=== PATIENT | male | born 1930 | race Two or more races ===

== ENCOUNTER 2019-11-30 13:22 | Inpatient (IN) | payer OTHER ==
--- NOTE | 2019-11-30 13:38 | PDOC ---
History of Present Illness - General Chief Complaint: Shortness of Breath Stated Complaint: DIFFICULTY WALKING Time Seen by Provider: 11/30/19 13:33 History Source: Patient Exam Limitations: No Limitations - History of Present Illness Initial Comments: Hx limited bc patient speaks english only. Never been here in the past Per EMS: Trouble walking, fell in bath rub yesterday, unwitnessed. Satting at 93 on RA. now 98 on 4lnc. On blood thinners. Had a stent. Hx of heart disease. Fever notiiced in ER. Speaks english only. HPI: Latvian speaking nurse Austen helped with translation. Patient states he feels weak. keeps speaking about a tree he ate from where he thinks the berries are no good. Endorses 1 episode of nausea and vomiting yesterday. Been feeling weak for 2 days. Patient not making much sense in ER and not able to provide a good historical narrative. Per son: Sudhir [phone]. Last night midnight unwitnessed fall in bathroom. Was on the floor for half an hour. Started yelling for brother. Brother helped him get up. Checked sugar was 157 last night. Has not been feeling well for 3 days now but he doesn't know why. Generalized weakness. Tried to goto Dr. Ra rodney's office today but patient couldn't even walk half a block and was falling down on son. Couldn't breathe and couldn't walk. Is very weak. Usually he is able to walk nice and slowly with a cane. But today and yesterday he is very weak and son doesn't know whats going on. - Hx of kidney stones. Chronic hip/shoulder pain. - Father stayed home for the past 3 months and has not gone anywhere. No coronavirus in household. PMH: CAD, 2 stents, NIDDM PCP: Dr. Carbajal Chopped Strand Operator: Dr. Wright (Same office as andrew) PSH: Stents Allergies: NKA, NKDA Social Hx: Denies smoking, drinking, or other substance abuse. Patient lives at home with son. Brother is primary auto mechanics instructor. 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 Past History - Medical History Allergies/Adverse Reactions: Allergies Allergy/AdvReac Type Severity Reaction Status Date / Time No Allergy Information Allergy Verified 06/25/20 13:29 Available COPD: No - Psycho-Social/Smoking History Smoking History: Never smoked Review of Systems - Review of Systems Able to Perform ROS?: No (Confused) *Physical Exam - Vital Signs Last Vital Signs Temp Pulse Resp BP Pulse Ox 102.6 F H 112 H 20 132/78 95 11/30/19 13:26 11/30/19 13:26 11/30/19 13:26 11/30/19 13:26 11/30/19 13:26 - Physical Exam GENERAL: Resting on bed comfortably. in No acute distress. Well-appearing, well- nourished. HEENT: Normocephalic, atraumatic. PERRL, EOM intact. CARDIOVASCULAR: Normal S1, S2. Regular rate and rhythm. 1 lower extremity + edema. PULMONARY: No evidence of respiratory distress. Lungs clear to auscultation bilaterally. No wheezing, rales or rhonchi. ABDOMEN: Soft, non-distended, non-tender. EXTREMITIES: Normal ROM in all four extremities. No gross deformities. 1+ edema bilaterally in lower legs. SKIN: Warm, dry. No rash NEUROLOGICAL: No focal neurological deficits. ED Treatment Course - LABORATORY CBC & Chemistry Diagram: 11/30/19 14:37 11/30/19 14:37 - RADIOLOGY Radiograph Interpretation: Head/cervical CT: Rule out bleed CT scan of the brain. A noncontrast CT scan of the brain was performed. No prior is available for comparison There is generalized volume loss with moderate ventricular dilatation and periventricular chronic microvascular ischemic changes are present No mass lesion, gross acute infarct or intracranial hemorrhage are identified. There is minimal free fluid layering in the right x-ray antrum. The rest of the visualized paranasal sinuses are well aerated with mild deviation of the nasal septum towards the right. Right mastoid air cells are well aerated. Left mastoid air cells are partially opacified. Both orbits appear unremarkable. Impression: Generalized volume loss without gross CT evidence of acute intracranial pathology. The calvarium is intact. CT scan of the cervical spine without intravenous contrast Coronal and sagittal reconstruction images were obtained. No gross fracture, subluxation or prevertebral soft tissue swelling is seen. No jumped facets are identified. Moderate to marked degenerative disc disease at C4-C5 and C5-C6 level with mild disc osteophyte complex and bilateral uncovertebral hypertrophy mainly at C5-C6 level moderately narrowing the foramina. Mild degenerative disc disease at C6-C7 level Visualized portion of the airway appears unremarkable. No gross enlarged lymph nodes are identified. Lung windows at the thoracic inlet appear unremarkable. Moderate size calcified plaques at the common carotid bifurcation, bilaterally IMPRESSION: See discussion above The alignment is satisfactory. No gross fracture or subluxation is seen. CTAP: Evaluate for abdominal pain CT scan of the abdomen and pelvis following oral and intravenous contrast. Coronal and sagittal reformatted images were obtained 90 cc of Omnipaque 350 was intravenously injected Comparison: None available There is interstitial thickening in the included lower lung with mild bibasal atelectatic changes and pleural thickening without gross evidence of pleural effusion. The heart is within normal limits in size. Calcification of the coronary arteries are present. Evaluation of the liver, spleen and pancreas appear unremarkable. Status post cholecystectomy surgical metallic clips are present. Both adrenal glands appear unremarkable. There are multiple bilateral renal cysts with the largest left renal cyst measuring 4.8 cm and largest right renal cyst measuring 5.7 cm. Normal size common bile duct. Nondistended stomach limiting evaluation of its wall There is no evidence of small bowel obstruction. Collapsed terminal ileum limiting its evaluation. The appendix is not grossly identified. No secondary signs of acute appendicitis. Normal amount of stool in the colon. Redundant sigmoid colon without thickening. Partially distended bladder without wall thickening. Normal size prostate gland with small calcifications which are nonspecific. Perirectal and pericecal fat are clear. Small fat-containing right and left inguinal hernia. Normal size and enhancement of the abdominal aorta with calcified atheromatous plaques down through its bifurcation. No free air or free fluid in the abdomen and pelvis. Visualized osseous structures appear intact. L4-L5 mild degenerative disc disease with vacuum phenomena and moderate bilateral facet hypertrophy. There is posterior fusion of L4 and L5 posterior spinous process. L5-S1 mild degenerative vacuum phenomena Impression: Mild bibasal atelectatic changes with pleural thickening Status post cholecystectomy. Bilateral renal cysts, as described above. No gross CT evidence of an acute process is identified in the abdomen pelvis. Medical Decision Making - Medical Decision Making 89 yo M w a hx of CAD, 2 stents, NIDDM presents with weakness, a fever, possible nausea/vomiting, poor historian, clear sounding breath soundsm inability to ambulate when he usually can. Vital Signs Period Temp Pulse Resp BP Sys/Meléndez Pulse Ox Last 24 Hr 102.6 F 112 20 132/78 95 DDx IBNLT: Sepsis, Covid, PNA, UTI, Pylo, electrolyte/metabolic disturbance, gastroenteritis, cellultiis, brain bleed, cervical fx, intra-abdominal infection. Plan: Labs, Urine, EKG, CXR, Head/neck/abdomen CT, likely admission to hospital. Labs: Unremarkable Head/cervical CT: No acute pathology. Significant brain atrophy/ventricular dilatation CTAP: Mild bibasal atelectatic changes with pleural thickening Urine: Clean without signs of infection Dispo: Admission for generalized weakness, fever of unkown origin Discharge - Discharge Information Problems reviewed: Yes Clinical Impression/Diagnosis: Confusion, SIRS (systemic inflammatory response syndrome), Weakness Fatigue Qualifiers: Fatigue type: unspecified Qualified Code(s): R53.83 - Other fatigue Condition: Stable - Admission Yes - Follow up/Referral Referrals: Bri Carbajal MD [Primary Care Provider] - - Patient Discharge Instructions - Post Discharge Activity
[2019-11-30] MEDS ORDERED: SODIUM CHLORIDE 2,858 ML IV ONE (13:39)
[2019-11-30] MEDS ORDERED: LACTATED RINGERS SOLUTION 1000 ML INFUS.BAG IV ONE (13:45)
[2019-11-30] MEDS ORDERED: ACETAMINOPHEN 1000 MG/100 ML VIAL (NON FORMULARY) IVPB ONE (13:47)
[2019-11-30] MEDS ORDERED: ACETAMINOPHEN INJECTION 100 ML IVPB ONE (14:52)
[2019-11-30 15:07] LABS: BASO % 0.5 % (0-2.0); EOS % 0.1 % (0-4.5); HEMATOCRIT 37.8 % (35.4-49); HEMOGLOBIN 11.7 GM/dL (11.7-16.9); LYMPH % 14.2 % (8-40); MEAN CELL VOLUME 64.4 fl (80-96); MEAN PLT VOLUME 8.3 fl (7.5-11.1); MONO % 18.6 % (3.8-10.2); NEUT % 66.6 % (42.8-82.8); PLATELET COUNT 124 K/MM3 (134-434); RBC 5.87 M/mm3 (4.00-5.60); RDW 15.2 % (11.9-15.9); WHITE BLOOD COUNT 3.5 K/mm3 (4.0-10.0)
[2019-11-30 15:16] LABS: MCH 19.9 pg (25.7-33.7)
[2019-11-30 15:19] LABS: INR 1.28 (0.83-1.09); PROTHROMBIN TIME (PATIENT) 15.2 SEC (9.7-13.0)
[2019-11-30 15:21] LABS: ACTIVATED PTT 32.7 SECONDS (25.2-36.5)
[2019-11-30 15:30] LABS: BILIRUBIN,DIRECT 0.2 mg/dL (0.0-0.2)
[2019-11-30 15:32] LABS: ALBUMIN 3.4 g/dl (3.4-5.0); ALK PHOS 62 U/L (45-117); ANION GAP 8 MMOL/L (8-16); BILIRUBIN,TOTAL 0.6 mg/dL (0.2-1); BLOOD UREA NITROGEN 18.1 mg/dL (7-18); CALCIUM 8.5 mg/dL (8.5-10.1); CHLORIDE 104 mmol/L (98-107); CO2 27 mmol/L (21-32); CREATININE 1.3 mg/dL (0.55-1.3); GLUCOSE,RANDOM 114 mg/dL (74-106); SGOT/AST 30 U/L (15-37); SGPT/ALT 27 U/L (13-61); SODIUM 139 mmol/L (136-145); TOT PROT 6.8 g/dl (6.4-8.2)
[2019-11-30 16:00] LABS: ANISOCYTOSIS 1+; MACROCYTOSIS 0; OVALOCYTE 2+; PLATELET ESTIMATE DECREASED
--- NOTE | 2019-11-30 16:23 | PDOC ---
Documentation entered by Ladan Gill SCRIBE, acting as scribe for Lana Murry MD. Lana Murry MD: This documentation has been prepared by the scribe, Ladan Lee SCRIBE, under my direction and personally reviewed by me in its entirety. I confirm that the documentation accurately reflects all work, treatment, procedures, and medical decision making performed by me. Attending Attestation - Resident Resident Name: Darrian Haines - ED Attending Attestation I have performed the following: I have examined & evaluated the patient, The case was reviewed & discussed with the resident, I agree w/resident's findings & plan, Exceptions are as noted - HPI HPI: 11/30/19 13:37 The patient is an 89 year old male (Telugu speaking) with a significant PMH of CAD (2 stents), NIDDM, kidney stones and chronic hip/shoulder pain who presents to the ED BIBA for weakness. Per EMS the patient was having trouble ambulating and fell in bathtub yesterday, which was not witnessed. He notes he was on the floor for 30 minutes when his brother came to him and helped him up. EMS notes that the patient was satting 93% on RA, and 98% on 4L NC. Per brother, the patient had a blood sugar of 157 last night and that the patient has not been feeling well for 3 days, but he is not sure why, he just has been having generalized weakness. Son notes that the patient tried to see his PCP ut could not walk even half a block due to SOB and weakness. Son notes that patient is able to walk at baseline. Of note, the patient is on blood thinners. Denies COVID exposure. Denie fever, chills, nausea, vomiting, change in bowel habits. PCP: andrew - Physicial Exam PE: 11/30/19 16:18 General: non-toxic appearing HEENT: NCAT Chest: CTAB, good air entry, speaking in full sentences CVS: + s1 s2 Abdomen: soft, nt, nd , no rebound, no guarding Extremities: 1+ LE edema, warm and well perfused - Medical Decision Making 11/30/19 16:19 89 yo M p/w generalized weakness and fever in the ED, reports of SOB at home but patient currently denies, possible viral syndrome such as COVID vs. PNA vs. UTI. No abd tenderness or complaints of pain so lower suspicion for abdominal pathology. Plan: -labs -urine -COVID testing -cxr -IVF -CT a/p -tylenol -abx -admit This clinical encounter is taking place during a federal and state health care emergency attributable to the novel [place] Virus pandemic. The [place] of the Department of Health and Human Services has declared, pursuant to the Public Health Service Act 319F-3 (42 U.S.C. 247d-6d), that a covered persons activities related to medical countermeasures against COVID-19 will be immune from liability under Federal and State law. Discharge - Discharge Information Problems reviewed: Yes Clinical Impression/Diagnosis: Confusion, SIRS (systemic inflammatory response syndrome), Weakness Fatigue Qualifiers: Fatigue type: unspecified Qualified Code(s): R53.83 - Other fatigue Condition: Stable - Follow up/Referral Referrals: Bri Carbajal MD [Primary Care Provider] - - Patient Discharge Instructions - Post Discharge Activity
[2019-11-30] MEDS ORDERED: CEFTRIAXONE 1,000 MG in DEXTROSE 5%-WATER - 50 ML IVPB ONE (16:51)
[2019-11-30 17:26] LABS: EPI CELLS 12 /uL (0-25.1); HYALINE CASTS 2 /uL (0-3.1); PH,URINE 5.5 (5.0-8.0); URINE APPEARANCE CLEAR; URINE BACTERIA 5 /uL (0-1359); URINE BILIRUBIN NEGATIVE (NEGATIVE); URINE COLOR YELLOW; URINE GLUCOSE (UA) NEGATIVE (NEGATIVE); URINE KETONE NEGATIVE (NEGATIVE); URINE LEUK ESTERASE NEGATIVE (NEGATIVE); URINE NITRITE NEGATIVE (NEGATIVE); URINE PROTEIN 1+ (NEGATIVE); URINE UROBILINOGEN 0.2 mg/dL (0.2-1.0); URINE WBC 6 /uL (0-25.8)
[2019-11-30] MEDS ORDERED: CEFTRIAXONE 1 GM/50 ML BAG ONE (17:28)
[2019-11-30] MEDS ORDERED: AZITHROMYCIN 250 MG TABLET PO ONE (17:31)
[2019-11-30] MEDS ORDERED: AZITHROMYCIN 250 MG TABLET ONE (17:34)
[2019-11-30 17:51] LABS: URINE RBC 54.4 /uL (0-23.9)
[2019-11-30] MEDS ORDERED: LACTATED RINGERS SOLUTION 1,000 ML/1,000 ML INFUS.BAG IV SCH (18:30)
[2019-11-30] MEDS ORDERED: SODIUM CHLORIDE 1,000 ML IV SCH (21:15)
--- NOTE | 2019-11-30 21:15 | HP ---
CHIEF COMPLAINT: PCP: HISTORY OF PRESENT ILLNESS: Corey Florian is a 89 year old male (Macedonian speaking) with a significant PMH of CAD (2 stents), DM- kidney stones and chronic hip/shoulder pain who presented to the ED BIBA for weakness. Per EMS the patient was having trouble ambulating and fell in bathtub yesterday, which was not witnessed. He notes he was on the floor for 30 minutes when his brother came to him and helped him up. EMS notes that the patient was satting 93% on RA, and 98% on 4L NC. Per brother, the patient had a blood sugar of 157 last night and that the patient has not been feeling well for 3 days, but he is not sure why, he just has been having generalized weakness. Call and spoke to son, Sudhir,[phone] reports pt has not been around any COVID exposure, has been indoors. only went to see PCP last week. son was able to provide me with list of medication pt takes at home. pt last A1c 6.8, has not been "officially diagnosed with DM." monitoring BS and diet at home as per son. Denies COVID exposure. Denies fever, chills, nausea, vomiting, change in bowel habits. ER course was notable for: (1)Temp 102.6 (2)tachycardia 112 (3) Recent Travel: PAST MEDICAL HISTORY: CAD s/p stent x2 chronic shoulder pain DM PAST SURGICAL HISTORY: Social History: Smoking:denies Alcohol:denies Drugs: denies Allergies No Allergy Information Available Allergy (Verified 11/30/19 13:29) HOME MEDICATIONS: ASA 81 mg PO daily Metoprolol 25 mg Q12hrs Losaartan 25 mg daily Plavix 75 mg daily REVIEW OF SYSTEMS CONSTITUTIONAL: generalized weakness, Absent: fever, chills, diaphoresis, malaise, loss of appetite, weight change HEENT: Absent: rhinorrhea, nasal congestion, throat pain, throat swelling, difficulty swallowing, mouth swelling, ear pain, eye pain, visual changes CARDIOVASCULAR: Absent: chest pain, syncope, palpitations, irregular heart rate, lightheadedness, peripheral edema RESPIRATORY: Absent: cough, shortness of breath, dyspnea with exertion, orthopnea, wheezing, stridor, hemoptysis GASTROINTESTINAL: Absent: abdominal pain, abdominal distension, nausea, vomiting, diarrhea, constipation, melena, hematochezia GENITOURINARY: Absent: dysuria, frequency, urgency, hesitancy, hematuria, flank pain, genital pain MUSCULOSKELETAL: Absent: myalgia, arthralgia, joint swelling, back pain, neck pain SKIN: Absent: rash, itching, pallor HEMATOLOGIC/IMMUNOLOGIC: Absent: easy bleeding, easy bruising, lymphadenopathy, frequent infections ENDOCRINE: Absent: unexplained weight gain, unexplained weight loss, heat intolerance, cold intolerance NEUROLOGIC: Absent: headache, focal weakness or paresthesias, dizziness, unsteady gait, seizure, mental status changes, bladder or bowel incontinence PSYCHIATRIC: Absent: anxiety, depression, suicidal or homicidal ideation, hallucinations. PHYSICAL EXAMINATION Vital Signs - 24 hr 11/30/19 11/30/19 13:26 16:50 Temperature 102.6 F H 99.1 F Pulse Rate 112 H Pulse Rate [ 105 H Left Radial] Respiratory 20 18 Rate Blood Pressure 132/78 Blood Pressure 117/90 [Left Arm] O2 Sat by Pulse 95 96 Oximetry (%) GENERAL: Awake, alert, ill appearing, Macedonian speaking HEAD: Normal with no signs of trauma. EYES: Pupils equal, round and reactive to light, extraocular movements intact, sclera anicteric, conjunctiva clear. No lid lag. EARS, NOSE, THROAT: Ears normal, nares patent, oropharynx clear without exudates. Moist mucous membranes. NECK: Normal range of motion, supple without lymphadenopathy, JVD, or masses. LUNGS: Breath sounds equal, clear to auscultation bilaterally. No wheezes, and no crackles. No accessory muscle use. HEART: Regular rate and rhythm, normal S1 and S2 without murmur, rub or gallop. ABDOMEN: Soft, nontender, not distended, normoactive bowel sounds, no guarding, no rebound, no masses. No hepatomegaly or splenomegaly. MUSCULOSKELETAL: Normal range of motion at all joints. No bony deformities or tenderness. No CVA tenderness. UPPER EXTREMITIES: 2+ pulses, warm, well-perfused. No cyanosis. No clubbing. No peripheral edema. LOWER EXTREMITIES: 2+ pulses, warm, well-perfused. No calf tenderness. No peripheral edema. NEUROLOGICAL: Cranial nerves II-XII intact. Normal speech. Normal gait. PSYCHIATRIC: Cooperative. Good eye contact. Appropriate mood and affect. SKIN: Warm, dry, normal turgor, no rashes or lesions noted, normal capillary refill. Laboratory Results - last 24 hr 11/30/19 11/30/19 11/30/19 14:37 14:37 14:37 WBC 3.5 L RBC 5.87 H Hgb 11.7 Hct 37.8 MCV 64.4 L MCH 19.9 L MCHC 31.0 L RDW 15.2 Plt Count 124 L MPV 8.3 Absolute Neuts (auto) 2.3 Neutrophils % 66.6 Lymphocytes % 14.2 Monocytes % 18.6 H Eosinophils % 0.1 Basophils % 0.5 Nucleated RBC % 0 Hypochromia 1+ Platelet Estimate Decreased Polychromasia 1+ Poikilocytosis 1+ Anisocytosis 1+ Microcytosis 1+ Macrocytosis 0 Ovalocytes 2+ PT with INR 15.20 H INR 1.28 H PTT (Actin FS) 32.7 Sodium 139 Potassium 4.0 Chloride 104 Carbon Dioxide 27 Anion Gap 8 BUN 18.1 H Creatinine 1.3 Est GFR (CKD-EPI)AfAm 56.46 Est GFR (CKD-EPI)NonAf 48.72 Random Glucose 114 H Lactic Acid Calcium 8.5 Ferritin Total Bilirubin 0.6 Direct Bilirubin AST 30 ALT 27 Alkaline Phosphatase 62 LD Total Creatine Kinase 280 Creatine Kinase Index 0.6 CK-MB (CK-2) 1.7 Troponin I < 0.02 C-Reactive Protein 4.6 H Total Protein 6.8 Albumin 3.4 Urine Color Urine Appearance Urine pH Ur Specific [place] Urine Protein Urine Glucose (UA) Urine Ketones Urine Blood Urine Nitrite Urine Bilirubin Urine Urobilinogen Ur Leukocyte Esterase Urine WBC (Auto) Urine RBC (Auto) Urine Casts (Auto) U Epithel Cells (Auto) Urine Bacteria (Auto) 11/30/19 11/30/19 11/30/19 14:37 14:37 14:37 WBC RBC Hgb Hct MCV MCH MCHC RDW Plt Count MPV Absolute Neuts (auto) Neutrophils % Lymphocytes % Monocytes % Eosinophils % Basophils % Nucleated RBC % Hypochromia Platelet Estimate Polychromasia Poikilocytosis Anisocytosis Microcytosis Macrocytosis Ovalocytes PT with INR INR PTT (Actin FS) Sodium Potassium Chloride Carbon Dioxide Anion Gap BUN Creatinine Est GFR (CKD-EPI)AfAm Est GFR (CKD-EPI)NonAf Random Glucose Lactic Acid 1.4 Calcium Ferritin 222.1 Total Bilirubin Direct Bilirubin 0.2 AST ALT Alkaline Phosphatase LD Total 161 Creatine Kinase Creatine Kinase Index CK-MB (CK-2) 1.7 Troponin I C-Reactive Protein Total Protein Albumin Urine Color Urine Appearance Urine pH Ur Specific [place] Urine Protein Urine Glucose (UA) Urine Ketones Urine Blood Urine Nitrite Urine Bilirubin Urine Urobilinogen Ur Leukocyte Esterase Urine WBC (Auto) Urine RBC (Auto) Urine Casts (Auto) U Epithel Cells (Auto) Urine Bacteria (Auto) 11/30/19 16:40 WBC RBC Hgb Hct MCV MCH MCHC RDW Plt Count MPV Absolute Neuts (auto) Neutrophils % Lymphocytes % Monocytes % Eosinophils % Basophils % Nucleated RBC % Hypochromia Platelet Estimate Polychromasia Poikilocytosis Anisocytosis Microcytosis Macrocytosis Ovalocytes PT with INR INR PTT (Actin FS) Sodium Potassium Chloride Carbon Dioxide Anion Gap BUN Creatinine Est GFR (CKD-EPI)AfAm Est GFR (CKD-EPI)NonAf Random Glucose Lactic Acid Calcium Ferritin Total Bilirubin Direct Bilirubin AST ALT Alkaline Phosphatase LD Total Creatine Kinase Creatine Kinase Index CK-MB (CK-2) Troponin I C-Reactive Protein Total Protein Albumin Urine Color Yellow Urine Appearance Clear Urine pH 5.5 Ur Specific [place] 1.043 H Urine Protein 1+ H Urine Glucose (UA) Negative Urine Ketones Negative Urine Blood 2+ H Urine Nitrite Negative Urine Bilirubin Negative Urine Urobilinogen 0.2 Ur Leukocyte Esterase Negative Urine WBC (Auto) 6 Urine RBC (Auto) 54.4 Urine Casts (Auto) 2 U Epithel Cells (Auto) 12 Urine Bacteria (Auto) 5 ASSESSMENT/PLAN: Corey Florian is a 89 yr old M, medical condition HTN, CAD s/p stent x2, hx kidney stones, chronic shoulder pain, DM admitted for Admitting Diagnosis SIRS r/o COVID vs Viral Chronic Conditions HTN CAD s/p stents x2 Chronic shoudler pain DM #SIRS r/o COVID vs Viral -Temp 102.6, tachycardia -airborne/contact isolation -COVID swabbed in ED -IV azithro rocephin -UA neg -CT abd/pelvis no acute findings -blood, urine cx in process -ID consult #s/p fall at home -CT head, spine no acute findings, fx -fall precautions -PT eval #HTN #CAD s/p stent x2 -c/w asa, plavix -on BB, ARB #DM -ISC -diabetic diet -monitor FS AC/HS -A1c in AM -not on meds at home Full Code Dispo: requires inpatient treatment Visit type - Emergency Visit Emergency Visit: Yes Care time: The patient presented to the Emergency Department on the above date and was hospitalized for further evaluation of their emergent condition. - New Patient This patient is new to me today: Yes Date on this admission: 11/30/19 - Critical Care Critical Care patient: No
[2019-11-30] MEDS ORDERED: ACETAMINOPHEN 325 MG TABLET (FP) PO PRN (21:25)
[2019-11-30] MEDS ORDERED: HEPARIN NA (PORCINE) 5,000 UNITS/ML 1ML VIAL SQ SCH (22:00)
[2019-11-30] MEDS: METOPROLOL TARTRATE 25 MG TABLET (FP) PO SCH (22:45)
[2019-11-30] MEDS: INSULIN SLIDING SCALE (NOVOLOG) 1 VIAL SQ SCH (23:30)
[2019-12-01] MEDS ORDERED: METOPROLOL TARTRATE 25 MG TABLET (FP) ONE (00:59)
[2019-12-01 02:51] VITALS: BMI 33.5
[2019-12-01] MEDS: INSULIN SLIDING SCALE (NOVOLOG) 1 VIAL SQ SCH ×4 (06:51→21:17)
[2019-12-01 08:19] LABS: HEMATOCRIT 35.8 % (35.4-49); HEMOGLOBIN 10.9 GM/dL (11.7-16.9); MCHC 30.5 g/dl (32.0-35.9); MEAN CELL VOLUME 64.7 fl (80-96); MEAN PLT VOLUME 8.4 fl (7.5-11.1); PLATELET COUNT 115 K/MM3 (134-434); RBC 5.54 M/mm3 (4.00-5.60); RDW 15.4 % (11.9-15.9); WHITE BLOOD COUNT 3.3 K/mm3 (4.0-10.0)
[2019-12-01 08:28] LABS: MCH 19.8 pg (25.7-33.7)
[2019-12-01 08:46] LABS: BILIRUBIN,TOTAL 0.9 mg/dL (0.2-1); BLOOD UREA NITROGEN 15.1 mg/dL (7-18); CALCIUM 7.9 mg/dL (8.5-10.1); CREATININE 0.9 mg/dL (0.55-1.3); MAGNESIUM 2.2 mg/dL (1.8-2.4); POTASSIUM 3.8 mmol/L (3.5-5.1)
[2019-12-01] MEDS ORDERED: PT OWN MED DRAWER 7, Y5N ONE (09:52)
[2019-12-01] MEDS ORDERED: DEXTROSE 5%-WATER - 50 ML IVPB ONE (09:53)
[2019-12-01] MEDS ORDERED: cefTRIAXone SODIUM 1 GM VIAL ONE (09:53)
[2019-12-01] MEDS ORDERED: AZITHROMYCIN IVPB 500 MG in DEXTROSE 5%-WATER - 250 ML IVPB SCH (10:00)
[2019-12-01] MEDS: LOSARTAN POTASSIUM 25 MG TABLET PO SCH (10:01)
[2019-12-01] MEDS: CEFTRIAXONE 1 GM in DEXTROSE 5%-WATER - 50 ML IVPB SCH (10:01)
[2019-12-01] MEDS: METOPROLOL TARTRATE 25 MG TABLET (FP) PO SCH ×2 (10:01→21:19)
[2019-12-01] MEDS: ASPIRIN COATED 81 MG TABLET.EC PO SCH (10:01)
[2019-12-01] MEDS: CLOPIDOGREL BISULFATE 75 MG TABLET (FP) PO SCH (10:12)
[2019-12-01] MEDS ORDERED: AZITHROMYCIN IVPB 500 MG/250 ML BAG IVPB SCH ×2 (10:29→11:30)
--- NOTE | 2019-12-01 11:30 | CON.ID ---
Consult Consult Specialty:: infectious diseases Referred by:: Hospitalist Reason for Consultation:: fall,weakness - History of Present Illness Chief Complaint: weakness History of Present Illness: Corey Florian is a 89 year old male (Upper Sorbian speaking) with a significant PMH of CAD (2 stents), DM- kidney stones and chronic hip/shoulder pain who presented to the ED BIBA for weakness. Per EMS the patient was having trouble ambulating and fell in bathtub yesterday, which was not witnessed. He notes he was on the floor for 30 minutes when his brother came to him and helped him up. EMS notes that the patient was satting 93% on RA, and 98% on 4L NC. Per brother, the patient had a blood sugar of 157 last night and that the patient has not been feeling well for 3 days, but he is not sure why, he just has been having generalized weakness. above history obtained from the charts as patient not able to give history properly patient is awake and alert - History Source History Provided By: Patient, Medical Record Limitations to Obtaining History: Language Barrier - Smoking History Smoking history: Never smoked Home Medications - Allergies Allergies/Adverse Reactions: Allergies Allergy/AdvReac Type Severity Reaction Status Date / Time No Allergy Information Allergy Verified 11/30/19 13:29 Available Review of Systems - Review of Systems Constitutional: reports: Weakness Eyes: reports: No Symptoms HENT: reports: No Symptoms Neck: reports: No Symptoms Cardiovascular: reports: No Symptoms Respiratory: reports: No Symptoms Gastrointestinal: reports: No Symptoms Genitourinary: reports: No Symptoms Musculoskeletal: reports: No Symptoms Integumentary: reports: No Symptoms Neurological: reports: No Symptoms Endocrine: reports: No Symptoms Hematology/Lymphatic: reports: No Symptoms Psychiatric: reports: No Symptoms Physical Exam Vital Signs: Vital Signs Temperature 98.2 F 12/01/19 05:13 Pulse Rate 91 H 12/01/19 05:13 Respiratory Rate 18 12/01/19 05:13 Blood Pressure 123/73 12/01/19 05:13 O2 Sat by Pulse Oximetry (%) 96 12/01/19 02:13 Constitutional: Yes: Well Nourished, No Distress, Calm Eyes: Yes: Conjunctiva Clear HENT: Yes: Atraumatic, Normocephalic Neck: Yes: Supple, Trachea Midline Cardiovascular: Yes: Regular Rate and Rhythm Respiratory: Yes: Regular, CTA Bilaterally Gastrointestinal: Yes: Normal Bowel Sounds, Soft Musculoskeletal: Yes: WNL Extremities: Yes: WNL Neurological: Yes: Alert, Oriented Psychiatric: Yes: Alert, Oriented Labs: CBC, BMP 12/01/19 07:53 12/01/19 07:53 Imaging - Results Chest X-ray: Report Reviewed, Image Reviewed Cat Scan: Report Reviewed, Image Reviewed Assessment/Plan this patient with multiple medical issues coming in with fall which was unwitnessed currently stable patient was started on zithro and ceftriaxone i am going to stop zithro will continue with ceftriaxone await for all the cx rest as per the team
--- NOTE | 2019-12-01 11:55 | PN ---
Progress Note, Physician Chief Complaint: Dizziness S/P fall History of Present Illness: Used Drive[employer], ID#[id number] for interpretation during my exam. NAD in bed Pt c/o mild left flank pain. Pt fell at home in the bathroom because he felt dizzy. He denies hitting his head. However, CT head was unremarkable CTAP unremarkable UA +2 blood, denies any urinary symptoms - Current Medication List Current Medications: Active Medications Acetaminophen (Tylenol -) 650 mg PO Q4H PRN PRN Reason: FEVER Aspirin (Ecotrin -) 81 mg PO DAILY [facility] Last Admin: 12/01/19 10:01 Dose: 81 mg Documented by: Clopidogrel Bisulfate (Plavix -) 75 mg PO DAILY [facility] Last Admin: 12/01/19 10:12 Dose: 75 mg Documented by: Ceftriaxone Sodium 1 gm/ (Dextrose) 50 mls @ 100 mls/hr IVPB DAILY [facility]; Protocol Last Admin: 12/01/19 10:01 Dose: 100 mls/hr Documented by: Sodium Chloride (Normal Saline -) 1,000 mls @ 75 mls/hr IV ASDIR [facility] Last Admin: 11/30/19 23:36 Dose: 75 mls/hr Documented by: Insulin Aspart (Novolog Vial Sliding Scale -) 1 vial SQ ACHS [facility]; Protocol Last Admin: 12/01/19 11:40 Dose: Not Given Documented by: Losartan Potassium (Cozaar -) 25 mg PO DAILY@0800 [facility] Last Admin: 12/01/19 10:01 Dose: 25 mg Documented by: Metoprolol Tartrate (Lopressor -) 25 mg PO BID [facility] Last Admin: 12/01/19 10:01 Dose: 25 mg Documented by: - Objective Vital Signs: Vital Signs Temperature 98.2 F 12/01/19 05:13 Pulse Rate 91 H 12/01/19 05:13 Respiratory Rate 18 12/01/19 05:13 Blood Pressure 123/73 12/01/19 05:13 O2 Sat by Pulse Oximetry (%) 96 12/01/19 02:13 Constitutional: Yes: Well Nourished, No Distress, Calm Cardiovascular: Yes: Regular Rate and Rhythm Respiratory: Yes: Regular, CTA Bilaterally Gastrointestinal: Yes: Normal Bowel Sounds, Soft, Abdomen, Obese Genitourinary: Yes: WNL Musculoskeletal: Yes: WNL Extremities: Yes: WNL Edema: No Peripheral Pulses WNL: Yes Neurological: Yes: Alert, Oriented Psychiatric: Yes: Alert, Oriented Labs: CBC, BMP 12/01/19 07:53 12/01/19 07:53 INR, PTT INR 1.28 (0.83-1.09) H 11/30/19 14:37 Problem List - Problems (1) Dizziness Assessment/Plan: -cardiology consult -Check B12, RPR, Thyroid -neurology consult -MRI brain if neurology deems necessary -Tele monitor -U/S carotid -Check orthostatic BP Problems reviewed: Yes Code(s): R42 - DIZZINESS AND GIDDINESS (2) Syncope Problems reviewed: Yes Code(s): R55 - SYNCOPE AND COLLAPSE (3) Fall Assessment/Plan: -Safety precautions Problems reviewed: Yes Code(s): W19.XXXA - UNSPECIFIED FALL, INITIAL ENCOUNTER (4) Anemia Assessment/Plan: -monitor labs -Check Iron profile Problems reviewed: Yes Code(s): D64.9 - ANEMIA, UNSPECIFIED (5) Leukopenia Assessment/Plan: -Hematology consult -Monitor trend Problems reviewed: Yes Code(s): D72.819 - DECREASED WHITE BLOOD CELL COUNT, UNSPECIFIED (6) Diabetes Assessment/Plan: -A1c at 7.6 -BGM AC HS -ISS -Diabetic diet Problems reviewed: Yes Code(s): E11.9 - TYPE 2 DIABETES MELLITUS WITHOUT COMPLICATIONS Qualifiers: Diabetes mellitus type: type 2 (7) Fever Assessment/Plan: -COVID 19 PCR negative -UC/BC pending -Afebrile now -ID on board -IV rocephin for now Problems reviewed: Yes Code(s): R50.9 - FEVER, UNSPECIFIED Assessment/Plan See problem list Left msg for son to call back for pt status update
--- NOTE | 2019-12-01 14:24 | CON.CARD ---
Consult Consult Specialty:: cardiology Referred by:: john Reason for Consultation:: weakness - History of Present Illness Chief Complaint: weakness History of Present Illness: Mr. Florian is a 89 year old with a pmhx of CAD s/p stent to RCA 1995 and stents prox-mid LAD and OM 2016, dm, htn, and kidney stones presenting with weakness. Patient had unwitnessed fall in the bathroom. Patient c/o dizziness and weakness. No chest pain, sob, or palpitations. No pnd, orthopnea, or edema. Echo 2019 normal LVEF and no significant valve disease. Febrile on admission but none since. No ekg. Covid negative Still feels weak and unsteady. - History Source History Provided By: Patient, Medical Record - Smoking History Smoking history: Never smoked Home Medications - Allergies Allergies/Adverse Reactions: Allergies Allergy/AdvReac Type Severity Reaction Status Date / Time No Allergy Information Allergy Verified 11/30/19 13:29 Available Vital Signs: Vital Signs Temperature 98.3 F 12/01/19 09:00 Pulse Rate 93 H 12/01/19 09:00 Respiratory Rate 18 12/01/19 09:00 Blood Pressure 120/62 12/01/19 09:00 O2 Sat by Pulse Oximetry (%) 99 12/01/19 09:00 Constitutional: Yes: No Distress Neck: Yes: Supple Respiratory: Yes: CTA Bilaterally Gastrointestinal: Yes: Soft Cardiovascular: Yes: Regular Rate and Rhythm JVD: No Carotid Bruit: No PMI: Non-Displaced Heart Sounds: Yes: S1, S2 Murmur: Yes: Systolic Murmur Edema: No - Other Data Labs, Other Data: CBC, BMP 12/01/19 07:53 12/01/19 07:53 INR, PTT INR 1.28 (0.83-1.09) H 11/30/19 14:37 Troponin, BNP 11/30/19 14:37 Troponin I < 0.02 Troponin, BNP 11/30/19 14:37 Troponin I < 0.02 Imaging - Results Chest X-ray: Report Reviewed Problem List - Problems (1) Dizziness Code(s): R42 - DIZZINESS AND GIDDINESS (2) Weakness Code(s): R53.1 - WEAKNESS Assessment/Plan Mr. Florian is a 89 year old with a pmhx of CAD s/p stent to RCA 1995 and stents prox-mid LAD and OM 2017, dm, htn, and kidney stones presenting with weakness. Patient had unwitnessed fall in the bathroom. Patient c/o dizziness and weakness. No chest pain, sob, or palpitations. No pnd, orthopnea, or edema. Echo 2019 normal LVEF and no significant valve disease. Febrile on admission but none since. No ekg. Covid negative Still feels weak and unsteady. 1) weakness and dizziness Unlikely any acute cardiac pathology as still with weakness and unsteadiness when standing up Please get a 12 lead ekg to see if any changes Echocardiogram in 2019 normal LVEF and no significant valve disease Continue aspirin/plavix. If on statin should restart. Metoprolol 25mg bid. Consider holding losartan and monitoring bp and restarting if bp needs it. He did have some svt and 4 beast nsvt on holter in 2019 so would get either a holter monitor here or telemetry for 24 hours but would be more concerned for arrhythmia if he had an acute episode biut patient still feels weak. Infectious work up as per primary team.
--- NOTE | 2019-12-01 14:43 | EKG ---
Test Reason : Blood Pressure : / mmHG Vent. 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 RATE HAS DECREASED BY 38 BPM Confirmed by PREMA NUNEZ MD ([id number]) on 12/01/2019 2:43:20 PM Referred By: PAWAN FULLER Confirmed By:PREMA NUNEZ MD
--- NOTE | 2019-12-01 14:57 | EKG ---
Test Reason : Blood Pressure : / mmHG Vent. 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
--- NOTE | 2019-12-01 17:30 | CONSULT ---
Consult - text type - Consultation Consultation Note: NEUROLOGY CONSULTATION is greatly appreciated: Events reviewed. History obtained with roommate translating. Patient examined. This 89 yo RH, man lives with his son. PMH sig for HTN, DM, ASHD, s/p stents [id number]. Maintained on clopidogrel, Losartan, ASA, Metoprolol. Denies gait difficulty but walks with cane x few years "because he is old." Denies dizziness or prior falls. Today he went to the bathroom to move his bowels. Afterwards got up and felt "wobbly." Fell into the bathtub without LOC. Couldn't get up so he called for his son who called EMS. In ED: BP's 109-129/57-73. NSR CT of head (reviewed): Moderately severe, diffuse atrophy with microvascular changes. 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 MONIQUE: No evidence of external head trauma. -Battles. Sl. Reduced neck ROM NEURO: Awake, alert. 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 CN II-XII: Normal without nystagmus Motor: No drift or tremor. Normal strength. Minimal cogwheeling. Normal reflexes except absent AJ's. Toes downgoing. Coord: No FTN Dystaxia Sensory: Reduced vibration in feet. Romberg +/- Gait: Sl. side-based. Holds onto the wall for turns. 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 Chronic, multifactorial gait dysfunction (senile gait). Vasovagal/orthostatic syncope vs. Simple fall. SUGGEST:Check orthostatic BP's Agree with telemetry Check B12, TSH, PT for gait training with [employer] associate Thank you very much, Jean-Paul Cunningham MD
[2019-12-01] MEDS: CYANOCOBALAMIN (VITAMIN B-12) 1000 MCG/1 ML VIAL IM SCH (17:40)
[2019-12-02] MEDS: metFORMIN HCL 500 MG TABLET (FP) PO SCH ×2 (06:06→17:37)
[2019-12-02] MEDS: INSULIN SLIDING SCALE (NOVOLOG) 1 VIAL SQ SCH ×4 (06:07→21:28)
[2019-12-02] MEDS ORDERED: cefTRIAXone SODIUM 1 GM VIAL ONE (09:12)
[2019-12-02] MEDS ORDERED: PT OWN MED DRAWER 7, Y5N ONE (09:12)
[2019-12-02] MEDS ORDERED: DEXTROSE 5%-WATER - 50 ML IVPB ONE (09:13)
[2019-12-02] MEDS: METOPROLOL TARTRATE 25 MG TABLET (FP) PO SCH ×2 (10:21→21:28)
[2019-12-02] MEDS: CYANOCOBALAMIN (VITAMIN B-12) 1000 MCG/1 ML VIAL IM SCH (10:22)
[2019-12-02] MEDS: ASPIRIN COATED 81 MG TABLET.EC PO SCH (10:22)
[2019-12-02] MEDS: CLOPIDOGREL BISULFATE 75 MG TABLET (FP) PO SCH (10:22)
[2019-12-02] MEDS: CEFTRIAXONE 1 GM in DEXTROSE 5%-WATER - 50 ML IVPB SCH (10:22)
[2019-12-02] MEDS: SODIUM CHLORIDE 1,000 ML IV SCH (10:22)
[2019-12-02] MEDS: LOSARTAN POTASSIUM 25 MG TABLET PO SCH (10:23)
[2019-12-02] MEDS ORDERED: IRON SUCROSE INJECTION 300 MG in SODIUM CHLORIDE 235 ML IVPB ONE (10:30)
--- NOTE | 2019-12-02 11:28 | PN ---
Progress Note, Physician History of Present Illness: stable no new issues - Current Medication List Current Medications: Active Medications Acetaminophen (Tylenol -) 650 mg PO Q4H PRN PRN Reason: FEVER Aspirin (Ecotrin -) 81 mg PO DAILY [facility] Last Admin: 12/02/19 10:22 Dose: 81 mg Documented by: Clopidogrel Bisulfate (Plavix -) 75 mg PO DAILY [facility] Last Admin: 12/02/19 10:22 Dose: 75 mg Documented by: Cyanocobalamin (Vitamin B12 Injection -) 1,000 mcg IM DAILY [facility] Last Admin: 12/02/19 10:22 Dose: 1,000 mcg Documented by: Ceftriaxone Sodium 1 gm/ (Dextrose) 50 mls @ 100 mls/hr IVPB DAILY [facility]; Protocol Last Admin: 12/02/19 10:22 Dose: 100 mls/hr Documented by: Iron Sucrose 300 mg/ Sodium (Chloride) 250 mls @ 166.667 mls/hr IVPB ONCE ONE Stop: 12/02/19 11:59 Sodium Chloride (Normal Saline -) 1,000 mls @ 83 mls/hr IV ASDIR [facility] Last Admin: 12/02/19 10:22 Dose: 83 mls/hr Documented by: Insulin Aspart (Novolog Vial Sliding Scale -) 1 vial SQ ACHS [facility]; Protocol Last Admin: 12/02/19 06:07 Dose: Not Given Documented by: Metformin HCl (Glucophage -) 500 mg PO BID@0700,1630 [facility] Last Admin: 12/02/19 06:06 Dose: 500 mg Documented by: Metoprolol Tartrate (Lopressor -) 25 mg PO BID [facility] Last Admin: 12/02/19 10:21 Dose: 25 mg Documented by: - Objective Vital Signs: Vital Signs Temperature 98.2 F 12/02/19 08:23 Pulse Rate 66 12/02/19 08:23 Respiratory Rate 18 12/02/19 08:23 Blood Pressure 109/58 L 12/02/19 08:23 O2 Sat by Pulse Oximetry (%) 98 12/02/19 08:23 Constitutional: Yes: No Distress, Calm Cardiovascular: Yes: S1, S2 Respiratory: Yes: Regular, CTA Bilaterally Gastrointestinal: Yes: Normal Bowel Sounds, Soft Musculoskeletal: Yes: WNL Extremities: Yes: WNL Neurological: Yes: Alert, Oriented Psychiatric: Yes: Alert, Oriented Labs: CBC, BMP 12/01/19 07:53 12/01/19 07:53 INR, PTT INR 1.28 (0.83-1.09) H 11/30/19 14:37 Assessment/Plan Problems (1) Dizziness Problems reviewed: Yes Code(s): R42 - DIZZINESS AND GIDDINESS (2) Syncope Problems reviewed: Yes Code(s): R55 - SYNCOPE AND COLLAPSE (3) Fall Problems reviewed: Yes Code(s): W19.XXXA - UNSPECIFIED FALL, INITIAL ENCOUNTER (4) Anemia Problems reviewed: Yes Code(s): D64.9 - ANEMIA, UNSPECIFIED (5) Leukopenia Problems reviewed: Yes Code(s): D72.819 - DECREASED WHITE BLOOD CELL COUNT, UNSPECIFIED (6) Diabetes Problems reviewed: Yes Code(s): E11.9 - TYPE 2 DIABETES MELLITUS WITHOUT COMPLICATIONS Qualifiers: Diabetes mellitus type: type 2 (7) Fever Problems reviewed: Yes Code(s): R50.9 - FEVER, UNSPECIFIED plan awaiting urine results continue ceftriaxone
--- NOTE | 2019-12-02 11:39 | PN ---
Progress Note, Physician Chief Complaint: AWAKE ALERT EVENTS AND NOTES REVIEWED - Current Medication List Current Medications: Active Medications Acetaminophen (Tylenol -) 650 mg PO Q4H PRN PRN Reason: FEVER Aspirin (Ecotrin -) 81 mg PO DAILY [facility] Last Admin: 12/02/19 10:22 Dose: 81 mg Documented by: Clopidogrel Bisulfate (Plavix -) 75 mg PO DAILY [facility] Last Admin: 12/02/19 10:22 Dose: 75 mg Documented by: Cyanocobalamin (Vitamin B12 Injection -) 1,000 mcg IM DAILY [facility] Last Admin: 12/02/19 10:22 Dose: 1,000 mcg Documented by: Ceftriaxone Sodium 1 gm/ (Dextrose) 50 mls @ 100 mls/hr IVPB DAILY [facility]; Protocol Last Admin: 12/02/19 10:22 Dose: 100 mls/hr Documented by: Iron Sucrose 300 mg/ Sodium (Chloride) 250 mls @ 166.667 mls/hr IVPB ONCE ONE Stop: 12/02/19 11:59 Sodium Chloride (Normal Saline -) 1,000 mls @ 83 mls/hr IV ASDIR [facility] Last Admin: 12/02/19 10:22 Dose: 83 mls/hr Documented by: Insulin Aspart (Novolog Vial Sliding Scale -) 1 vial SQ ACHS [facility]; Protocol Last Admin: 12/02/19 06:07 Dose: Not Given Documented by: Metformin HCl (Glucophage -) 500 mg PO BID@0700,1630 [facility] Last Admin: 12/02/19 06:06 Dose: 500 mg Documented by: Metoprolol Tartrate (Lopressor -) 25 mg PO BID [facility] Last Admin: 12/02/19 10:21 Dose: 25 mg Documented by: - Objective Vital Signs: Vital Signs Temperature 98.2 F 12/02/19 08:23 Pulse Rate 66 12/02/19 08:23 Respiratory Rate 18 12/02/19 08:23 Blood Pressure 109/58 L 12/02/19 08:23 O2 Sat by Pulse Oximetry (%) 98 12/02/19 08:23 Constitutional: Yes: No Distress Cardiovascular: Yes: Regular Rate and Rhythm Respiratory: Yes: WNL Gastrointestinal: Yes: WNL Genitourinary: Yes: WNL Musculoskeletal: Yes: Muscle Weakness Extremities: Yes: WNL Edema: No Peripheral Pulses WNL: Yes Integumentary: Yes: WNL Wound/Incision: Yes: Clean/Dry Neurological: Yes: WNL ...Motor Strength: WNL Psychiatric: Yes: WNL Labs: CBC, BMP 12/01/19 07:53 12/01/19 07:53 INR, PTT INR 1.28 (0.83-1.09) H 11/30/19 14:37 Problem List - Problems (1) Anemia Code(s): D64.9 - ANEMIA, UNSPECIFIED (2) Diabetes Code(s): E11.9 - TYPE 2 DIABETES MELLITUS WITHOUT COMPLICATIONS Qualifiers: Diabetes mellitus type: type 2 (3) Dizziness Code(s): R42 - DIZZINESS AND GIDDINESS (4) Fall Code(s): W19.XXXA - UNSPECIFIED FALL, INITIAL ENCOUNTER (5) Fatigue Code(s): R53.83 - OTHER FATIGUE Qualifiers: Fatigue type: unspecified Qualified Code(s): R53.83 - Other fatigue (6) Weakness Code(s): R53.1 - WEAKNESS Assessment/Plan PATIENT DOES NOT DRINK WATER I ENCOURAGED HIM TO DRINK 4-6 GLASSES PER DAY IVF STARTED IRON DEF---STARTED IRON INFUSION ID FOLLOW UP PT TYRONE
--- NOTE | 2019-12-02 16:47 | CON.HO ---
Consult Consult Specialty:: Hematology Reason for Consultation:: Leukopenia - History of Present Illness History of Present Illness: 89 year old gentleman (Italian speaking) with a significant PMH of CAD (2 stents), DM- kidney stones and chronic hip/shoulder pain who presented to the ED BIBA for weakness. Per EMS the patient was having trouble ambulating and fell in bathtub yesterday, which was not witnessed. He notes he was on the floor for 30 minutes when his brother came to him and helped him up. EMS notes that the patient was satting 93% on RA, and 98% on 4L NC. C/o initially of generalized weakness. Neighbor helped with translation. Hematology consulted due to leukop enia. - History Source History Provided By: Patient, Friend, Medical Record Limitations to Obtaining History: Language Barrier - Smoking History Smoking history: Never smoked Home Medications - Allergies Allergies/Adverse Reactions: Allergies Allergy/AdvReac Type Severity Reaction Status Date / Time No Allergy Information Allergy Verified 11/30/19 13:29 Available Review of Systems - Review of Systems Constitutional: reports: Weakness Eyes: reports: No Symptoms HENT: reports: No Symptoms Neck: reports: No Symptoms Cardiovascular: reports: No Symptoms Respiratory: reports: No Symptoms Gastrointestinal: reports: No Symptoms Genitourinary: reports: No Symptoms Musculoskeletal: reports: No Symptoms Integumentary: reports: No Symptoms Neurological: reports: No Symptoms Endocrine: reports: No Symptoms Physical Exam Vital Signs: Vital Signs Temperature 98.7 F 12/02/19 14:00 Pulse Rate 89 12/02/19 14:00 Respiratory Rate 20 12/02/19 14:00 Blood Pressure 101/62 12/02/19 14:00 O2 Sat by Pulse Oximetry (%) 98 12/02/19 08:23 Constitutional: Yes: Well Nourished Eyes: Yes: WNL HENT: Yes: WNL Neck: Yes: WNL Cardiovascular: Yes: WNL, Regular Rate and Rhythm Respiratory: Yes: WNL Gastrointestinal: Yes: WNL Extremities: Yes: WNL Integumentary: Yes: Bruising Neurological: Yes: WNL, Alert, Oriented Psychiatric: Yes: WNL, Alert, Oriented Labs: CBC, BMP 12/01/19 07:53 12/01/19 07:53 Assessment/Plan 89 year old gentleman (Italian speaking) with a significant PMH of CAD (2 stents), DM- kidney stones and chronic hip/shoulder pain who presented to the ED BIBA for weakness. Per EMS the patient was having trouble ambulating and fell in bathtub yesterday, which was not witnessed. He notes he was on the floor for 30 minutes when his brother came to him and helped him up. EMS notes that the patient was satting 93% on RA, and 98% on 4L NC. C/o initially of generalized weakness and admitting diagnosis was SIRS r/o COVID vs. other viral infections. Neighbor helped with translation. Hematology consulted due to leukopenia. Recommend: 1) Obtain prior CBC values if possible. He has mild leukopenia which can be a benign condition. Not neutropenic but with possible mild monocytosis. Viral infection can explain these findings. Repeat CBC daily with differential. Obtain peripheral blood flow cytometry. Consider HIV, EBV and Hepatitides panel (A,B,C) 2) R/O Beta thalassemia. He has microcytic, hypochromic anemia. Ferritin 264. TSAT 20. Obtain Hemoglobin electrophoresis, LDH reticulocyte count, Folate and Vitamin B12. 3) Mild thrombocytopenia. Cytopenias may also be due to ceftriaxone but this would be rare. 4) Repeat PT/INR, PTT to determine if prior prolonged INR may be due to Vitamin K deficiency. 5) Thank you for this consultation.
[2019-12-03] MEDS: INSULIN SLIDING SCALE (NOVOLOG) 1 VIAL SQ SCH ×4 (06:40→22:10)
[2019-12-03] MEDS: metFORMIN HCL 500 MG TABLET (FP) PO SCH ×2 (06:40→17:01)
[2019-12-03] MEDS ORDERED: ACETAMINOPHEN 325 MG TABLET (FP) PO PRN (07:08)
[2019-12-03] MEDS ORDERED: cefTRIAXone SODIUM 1 GM VIAL ONE (09:07)
[2019-12-03] MEDS ORDERED: DEXTROSE 5%-WATER - 50 ML IVPB ONE (09:07)
[2019-12-03] MEDS: CYANOCOBALAMIN (VITAMIN B-12) 1000 MCG/1 ML VIAL IM SCH (09:29)
[2019-12-03] MEDS: SODIUM CHLORIDE 1,000 ML IV SCH (09:29)
[2019-12-03] MEDS: ASPIRIN COATED 81 MG TABLET.EC PO SCH (09:29)
[2019-12-03] MEDS: CLOPIDOGREL BISULFATE 75 MG TABLET (FP) PO SCH (09:29)
[2019-12-03] MEDS ORDERED: METOPROLOL TARTRATE 25 MG TABLET (FP) PO SCH (10:00)
[2019-12-03] MEDS ORDERED: CEFTRIAXONE 1 GM in DEXTROSE 5%-WATER - 50 ML IVPB SCH (10:00)
--- NOTE | 2019-12-03 11:24 | PN ---
Progress Note, Physician Chief Complaint: URINE CX POSITIVE PATIENT ASLEEP EVENTS REVIEWED - Current Medication List Current Medications: Active Medications Acetaminophen (Tylenol -) 650 mg PO Q4H PRN PRN Reason: FEVER Aspirin (Ecotrin -) 81 mg PO DAILY [facility] Last Admin: 12/03/19 09:29 Dose: 81 mg Documented by: Clopidogrel Bisulfate (Plavix -) 75 mg PO DAILY [facility] Last Admin: 12/03/19 09:29 Dose: 75 mg Documented by: Cyanocobalamin (Vitamin B12 Injection -) 1,000 mcg IM DAILY [facility] Last Admin: 12/03/19 09:29 Dose: 1,000 mcg Documented by: Sodium Chloride (Normal Saline -) 1,000 mls @ 83 mls/hr IV ASDIR [facility] Last Admin: 12/03/19 09:29 Dose: 83 mls/hr Documented by: Ceftriaxone Sodium 1 gm/ (Dextrose) 50 mls @ 100 mls/hr IVPB DAILY [facility]; Protocol Last Admin: 12/03/19 09:29 Dose: 100 mls/hr Documented by: Insulin Aspart (Novolog Vial Sliding Scale -) 1 vial SQ ACHS [facility]; Protocol Metformin HCl (Glucophage -) 500 mg PO BID@0700,1630 [facility] Last Admin: 12/03/19 06:40 Dose: 500 mg Documented by: Metoprolol Tartrate (Lopressor -) 25 mg PO BID [facility] Last Admin: 12/03/19 09:28 Dose: 25 mg Documented by: - Objective Vital Signs: Vital Signs Temperature 98.1 F 12/03/19 09:55 Pulse Rate 67 12/03/19 09:55 Respiratory Rate 18 12/03/19 09:55 Blood Pressure 115/59 L 12/03/19 09:55 O2 Sat by Pulse Oximetry (%) 97 12/03/19 09:00 Constitutional: Yes: Mild Distress Cardiovascular: Yes: Pulse Irregular Respiratory: Yes: Diminished Gastrointestinal: Yes: WNL, Abdomen, Obese Genitourinary: Yes: WNL Musculoskeletal: Yes: Muscle Weakness Edema: Yes Edema: LLE: Trace, RLE: Trace Neurological: Yes: Pre-Existing Deficit, Unsteady Gait Labs: CBC, BMP 12/01/19 07:53 12/01/19 07:53 INR, PTT INR 1.28 (0.83-1.09) H 11/30/19 14:37 Problem List - Problems (1) Anemia Code(s): D64.9 - ANEMIA, UNSPECIFIED Qualifiers: Anemia type: unspecified type Qualified Code(s): D64.9 - Anemia, unspecified (2) Diabetes Code(s): E11.9 - TYPE 2 DIABETES MELLITUS WITHOUT COMPLICATIONS Qualifiers: Diabetes mellitus type: type 2 (3) Dizziness Code(s): R42 - DIZZINESS AND GIDDINESS (4) Fall Code(s): W19.XXXA - UNSPECIFIED FALL, INITIAL ENCOUNTER (5) Fatigue Code(s): R53.83 - OTHER FATIGUE Qualifiers: Fatigue type: unspecified Qualified Code(s): R53.83 - Other fatigue (6) Weakness Code(s): R53.1 - WEAKNESS Assessment/Plan ANEMIA WORKUP IN PROGRESS URINE CX +, AWAIT ORGANISM/SENS. PT EVAL IVF IRON IV LOW BP, STOP [place]ARTAN
[2019-12-03] MEDS ORDERED: IRON SUCROSE INJECTION 300 MG in SODIUM CHLORIDE 235 ML IVPB ONE (12:00)
[2019-12-03 12:09] LABS: INR 1.15 (0.83-1.09); PROTHROMBIN TIME (PATIENT) 13.6 SEC (9.7-13.0)
[2019-12-03 12:20] LABS: LDH 143 U/L (87-246)
[2019-12-03] MEDS ORDERED: PT OWN MED DRAWER 7, Y5N ONE (12:47)
--- NOTE | 2019-12-03 13:55 | PN ---
Progress Note, Physician - Current Medication List Current Medications: Active Medications Acetaminophen (Tylenol -) 650 mg PO Q4H PRN PRN Reason: FEVER Aspirin (Ecotrin -) 81 mg PO DAILY [facility] Last Admin: 12/03/19 09:29 Dose: 81 mg Documented by: Clopidogrel Bisulfate (Plavix -) 75 mg PO DAILY [facility] Last Admin: 12/03/19 09:29 Dose: 75 mg Documented by: Cyanocobalamin (Vitamin B12 Injection -) 1,000 mcg IM DAILY [facility] Last Admin: 12/03/19 09:29 Dose: 1,000 mcg Documented by: Ferrous Sulfate (Feosol -) 325 mg PO DAILY [facility] Sodium Chloride (Normal Saline -) 1,000 mls @ 83 mls/hr IV ASDIR [facility] Last Admin: 12/03/19 09:29 Dose: 83 mls/hr Documented by: Ceftriaxone Sodium 1 gm/ (Dextrose) 50 mls @ 100 mls/hr IVPB DAILY [facility]; Protocol Last Admin: 12/03/19 09:29 Dose: 100 mls/hr Documented by: Insulin Aspart (Novolog Vial Sliding Scale -) 1 vial SQ ACHS [facility]; Protocol Last Admin: 12/03/19 11:25 Dose: Not Given Documented by: Metformin HCl (Glucophage -) 500 mg PO BID@0700,1630 [facility] Last Admin: 12/03/19 06:40 Dose: 500 mg Documented by: Metoprolol Tartrate (Lopressor -) 25 mg PO BID [facility] - Objective Vital Signs: Vital Signs Temperature 98.1 F 12/03/19 09:55 Pulse Rate 67 12/03/19 09:55 Respiratory Rate 18 12/03/19 09:55 Blood Pressure 115/59 L 12/03/19 09:55 O2 Sat by Pulse Oximetry (%) 97 12/03/19 09:00 Labs: CBC, BMP 12/01/19 07:53 12/01/19 07:53 INR, PTT INR 1.15 (0.83-1.09) H 12/03/19 11:25
--- NOTE | 2019-12-03 17:27 | PN.HO ---
Progress Note (short form) - Note Progress Note: S: Mild dizziness O: Last Vital Signs Temp Pulse Resp BP Pulse Ox 97.8 F 64 20 106/55 L 97 12/03/19 14:00 12/03/19 14:00 12/03/19 14:00 12/03/19 14:00 12/03/19 09:00 12/01/19 07:53 12/01/19 07:53 Current Medications Generic Name Dose Route Start Last Admin Trade Name Kavon PRN Reason Stop Dose Admin Acetaminophen 650 mg 12/03/19 07:08 Tylenol - PO Q4H PRN FEVER Aspirin 81 mg 12/03/19 10:00 12/03/19 09:29 Ecotrin - PO 81 mg DAILY [facility] Administration Clopidogrel Bisulfate 75 mg 12/03/19 10:00 12/03/19 09:29 Plavix - PO 75 mg DAILY [facility] Administration Cyanocobalamin 1,000 mcg 12/01/19 16:45 12/03/19 09:29 Vitamin B12 Injection - IM 1,000 mcg DAILY [facility] Administration Ferrous Sulfate 325 mg 12/04/19 10:00 Feosol - PO DAILY [facility] Sodium Chloride 1,000 mls @ 83 mls/hr 12/02/19 10:00 12/03/19 09:29 Normal Saline - IV 83 mls/hr ASDIR RUBENS Administration Insulin Aspart 1 vial 12/03/19 11:00 12/03/19 16:38 Novolog Vial Sliding Scale - SQ Not Given ACHS [facility] Protocol Metformin HCl 500 mg 12/02/19 07:00 12/03/19 17:01 Glucophage - PO 500 mg BID@0700,1630 [facility] Administration Metoprolol Tartrate 25 mg 12/03/19 11:25 Lopressor - PO BID [facility] Plan: 89 year old gentleman (U[place] speaking) with a significant PMH of CAD (2 stents), DM- kidney stones and chronic hip/shoulder pain who presented to the ED BIBA for weakness. Per EMS the patient was having trouble ambulating and fell in bathtub yesterday, which was not witnessed. He notes he was on the floor for 30 minutes when his brother came to him and helped him up. EMS notes that the patient was satting 93% on RA, and 98% on 4L NC. C/o initially of generalized weakness and admitting diagnosis was SIRS r/o COVID vs. other viral infections. Neighbor helped with translation. Hematology consulted due to leukopenia. Recommend: 1) Obtain prior CBC values if possible. He has mild leukopenia which can be a benign condition. Not neutropenic but with possible mild monocytosis. Viral infection can explain these findings. Repeat CBC daily with differential. Obtain peripheral blood flow cytometry. Consider HIV, EBV and Hepatitides panel (A,B,C) 2) R/O Beta thalassemia. He has microcytic, hypochromic anemia. Ferritin 264. TSAT 20. Obtain Hemoglobin electrophoresis (ordered results pending) LDH reticulocyte count, Folate and Vitamin B12. 3) Mild thrombocytopenia. Cytopenias may also be due to ceftriaxone but this would be rare.
[2019-12-03] MEDS: METOPROLOL TARTRATE 25 MG TABLET (FP) PO SCH (22:09)
[2019-12-04] MEDS: INSULIN SLIDING SCALE (NOVOLOG) 1 VIAL SQ SCH ×2 (06:20→12:25)
[2019-12-04] MEDS: metFORMIN HCL 500 MG TABLET (FP) PO SCH (06:46)
[2019-12-04 07:38] LABS: HEMATOCRIT 34.8 % (35.4-49); HEMOGLOBIN 10.6 GM/dL (11.7-16.9); MCH 20.3 pg (25.7-33.7); MCHC 30.6 g/dl (32.0-35.9); MEAN CELL VOLUME 66.5 fl (80-96); MEAN PLT VOLUME 8.4 fl (7.5-11.1); PLATELET COUNT 125 K/MM3 (134-434); RBC 5.24 M/mm3 (4.00-5.60); RDW 15.8 % (11.9-15.9); WHITE BLOOD COUNT 4.8 K/mm3 (4.0-10.0)
[2019-12-04 08:05] LABS: ALBUMIN 2.7 g/dl (3.4-5.0); BILIRUBIN,TOTAL 0.4 mg/dL (0.2-1); BLOOD UREA NITROGEN 14.5 mg/dL (7-18); CALCIUM 8.1 mg/dL (8.5-10.1); CREATININE 0.8 mg/dL (0.55-1.3); POTASSIUM 4.1 mmol/L (3.5-5.1); TOT PROT 5.6 g/dl (6.4-8.2)
--- NOTE | 2019-12-04 08:30 | DS ---
Physical Examination Vital Signs: Vital Signs Temperature 97.8 F 12/04/19 06:00 Pulse Rate 57 L 12/04/19 06:00 Respiratory Rate 20 12/04/19 06:00 Blood Pressure 121/55 L 12/04/19 06:00 O2 Sat by Pulse Oximetry (%) 98 12/03/19 20:59 Cardiovascular: Yes: Regular Rate and Rhythm Respiratory: Yes: Regular, CTA Bilaterally Gastrointestinal: Yes: Normal Bowel Sounds, Soft. No: Tenderness Neurological: Yes: Alert, Oriented Labs: CBC, BMP 12/04/19 06:20 12/04/19 06:20 Discharge Summary Problems reviewed: Yes Reason For Visit: FATIGUE,CONFUSION,WEAKNESS Current Active Problems Anemia (Acute) Confusion (Acute) Diabetes (Acute) Dizziness (Acute) Fall (Acute) Fatigue (Acute) Fever (Acute) Leukopenia (Acute) SIRS (systemic inflammatory response syndrome) (Acute) Syncope (Acute) Weakness (Acute) Hospital Course: - Problems (1) Dizziness Assessment/Plan: -Resolved -cardiology consult noted -neurology consult -MRI brain if neurology deems necessary -Tele monitor -U/S carotid -Check orthostatic BP Problems reviewed: Yes Code(s): R42 - DIZZINESS AND GIDDINESS (2) Syncope Problems reviewed: Yes Code(s): R55 - SYNCOPE AND COLLAPSE (3) Fall Assessment/Plan: -Safety precautions Problems reviewed: Yes Code(s): W19.XXXA - UNSPECIFIED FALL, INITIAL ENCOUNTER (4) Anemia Assessment/Plan: -monitor labs -Check Iron profile -Hem on board Problems reviewed: Yes Code(s): D64.9 - ANEMIA, UNSPECIFIED (5) Leukopenia Assessment/Plan: -Hematology consult -Monitor trend Problems reviewed: Yes Code(s): D72.819 - DECREASED WHITE BLOOD CELL COUNT, UNSPECIFIED (6) Diabetes Assessment/Plan: -A1c at 7.6 -BGM AC HS -ISS -Diabetic diet Problems reviewed: Yes Code(s): E11.9 - TYPE 2 DIABETES MELLITUS WITHOUT COMPLICATIONS Qualifiers: Diabetes mellitus type: type 2 (7) Fever Assessment/Plan: -COVID 19 PCR negative -UC/BC pending -Afebrile now -ID on board -IV rocephin for now--po keflex -Cultures noted Problems reviewed: Yes Code(s): R50.9 - FEVER, UNSPECIFIED Condition: Stable - Instructions Referrals: Bri Carbajal MD [Primary Care Provider] - 1 Week - Home Medications Comprehensive Discharge Medication List: Ambulatory Orders Acetaminophen [Tylenol .Regular Strength -] 650 mg PO Q4H PRN tablet 12/04/19 Aspirin Coated [Ecotrin -] 81 mg PO DAILY #30 tablet.ec 12/04/19 Cephalexin Monohydrate [Keflex -] 500 mg PO BID #10 capsule 12/04/19 Clopidogrel Bisulfate [Plavix -] 75 mg PO DAILY #30 tablet 12/04/19 Ferrous Sulfate [Feosol] 325 mg PO DAILY #30 ud 12/04/19 Metoprolol Tartrate [Lopressor -] 25 mg PO BID #60 tablet 12/04/19 metFORMIN HCL [Glucophage -] 500 mg PO BID@0700,1630 #60 tablet 12/04/19
[2019-12-04] MEDS ORDERED: PT OWN MED DRAWER 7, Y5N ONE (09:57)
[2019-12-04] MEDS ORDERED: FERROUS SO4 325 MG TABLET (FP) PO SCH (10:00)
[2019-12-04] MEDS: CYANOCOBALAMIN (VITAMIN B-12) 1000 MCG/1 ML VIAL IM SCH (10:02)
[2019-12-04] MEDS: CLOPIDOGREL BISULFATE 75 MG TABLET (FP) PO SCH (10:02)
[2019-12-04] MEDS: METOPROLOL TARTRATE 25 MG TABLET (FP) PO SCH (10:02)
[2019-12-04] MEDS: ASPIRIN COATED 81 MG TABLET.EC PO SCH (10:02)
[2019-12-04 12:00] VITALS: BP 109/50; PULSE 60; TEMP 98.5
--- NOTE | 2019-12-04 12:00 | PN ---
Progress Note, Physician History of Present Illness: no new issues - Current Medication List Current Medications: Active Medications Acetaminophen (Tylenol -) 650 mg PO Q4H PRN PRN Reason: FEVER Aspirin (Ecotrin -) 81 mg PO DAILY [facility] Last Admin: 12/04/19 10:02 Dose: 81 mg Documented by: Clopidogrel Bisulfate (Plavix -) 75 mg PO DAILY [facility] Last Admin: 12/04/19 10:02 Dose: 75 mg Documented by: Cyanocobalamin (Vitamin B12 Injection -) 1,000 mcg IM DAILY [facility] Last Admin: 12/04/19 10:02 Dose: 1,000 mcg Documented by: Ferrous Sulfate (Feosol -) 325 mg PO DAILY [facility] Last Admin: 12/04/19 10:02 Dose: 325 mg Documented by: Sodium Chloride (Normal Saline -) 1,000 mls @ 83 mls/hr IV ASDIR [facility] Last Admin: 12/03/19 09:29 Dose: 83 mls/hr Documented by: Insulin Aspart (Novolog Vial Sliding Scale -) 1 vial SQ [facility]; Protocol Last Admin: 12/04/19 06:20 Dose: Not Given Documented by: Metformin HCl (Glucophage -) 500 mg PO BID@0700,1630 [facility] Last Admin: 12/04/19 06:46 Dose: 500 mg Documented by: Metoprolol Tartrate (Lopressor -) 25 mg PO BID [facility] Last Admin: 12/04/19 10:02 Dose: 25 mg Documented by: - Objective Vital Signs: Vital Signs Temperature 97.8 F 12/04/19 06:00 Pulse Rate 57 L 12/04/19 06:00 Respiratory Rate 20 12/04/19 09:00 Blood Pressure 121/55 L 12/04/19 06:00 O2 Sat by Pulse Oximetry (%) 98 12/04/19 09:00 Constitutional: Yes: No Distress, Calm Cardiovascular: Yes: S1, S2 Respiratory: Yes: Regular, CTA Bilaterally Gastrointestinal: Yes: Normal Bowel Sounds, Soft Musculoskeletal: Yes: WNL Extremities: Yes: WNL Neurological: Yes: Alert Labs: CBC, BMP 12/04/19 06:20 12/04/19 06:20 INR, PTT INR 1.15 (0.83-1.09) H 12/03/19 11:25 Assessment/Plan Problems (1) Dizziness Problems reviewed: Yes Code(s): R42 - DIZZINESS AND GIDDINESS (2) Syncope Problems reviewed: Yes Code(s): R55 - SYNCOPE AND COLLAPSE (3) Fall Problems reviewed: Yes Code(s): W19.XXXA - UNSPECIFIED FALL, INITIAL ENCOUNTER (4) Anemia Problems reviewed: Yes Code(s): D64.9 - ANEMIA, UNSPECIFIED (5) Leukopenia Problems reviewed: Yes Code(s): D72.819 - DECREASED WHITE BLOOD CELL COUNT, UNSPECIFIED (6) Diabetes Problems reviewed: Yes Code(s): E11.9 - TYPE 2 DIABETES MELLITUS WITHOUT COMPLICATIONS Qualifiers: Diabetes mellitus type: type 2 (7) Fever Problems reviewed: Yes Code(s): R50.9 - FEVER, UNSPECIFIED plan off of abx stable
[2019-12-05 18:10] LABS: HGB SOLUBILITY Negative (Negative); Hgb C 0 % (0.0); Hgb F 0 % (0.0-2.0); Hgb S 0 % (0.0)
== END 2019-12-04 13:23 | disposition home or self-care (01) | DRG 812 ==
LOC: JER 13:22 → JERBED 16:50 → J7W 12-01 02:58 → J4W 12-01 14:55
PROVIDERS: ADMIT Internal Medicine; ATTEND Family Medicine
DX: D50.9 Iron deficiency anemia, unspecified (principal); R65.10 Systemic inflammatory response syndrome (SIRS) of non-infectious origin without acute organ dysfunction; R55 Syncope and collapse; R50.9 Fever, unspecified; R42 Dizziness and giddiness; E11.42 Type 2 diabetes mellitus with diabetic polyneuropathy; I25.10 Atherosclerotic heart disease of native coronary artery without angina pectoris; W19.XXXA Unspecified fall, initial encounter; D72.819 Decreased white blood cell count, unspecified; D69.6 Thrombocytopenia, unspecified; Z95.5 Presence of coronary angioplasty implant and graft; E66.9 Obesity, unspecified; Z68.33 Body mass index [BMI] 33.0-33.9, adult
CPT/HCPCS: 36415; 70450-TC; 71045-TC-FY; 72125-TC; 74177-TC; 80053; 80061; 80074; 81003; 81257; 82248; 82550; 82553; 82607; 82728; 82746; 82962; 83021; 83036; 83540; 83550; 83605; 83615; 83721; 83735; 84439; 84443; 84480; 84484; 85025; 85027; 85044; 85610; 85660; 85730; 86140; 86664; 86780; 87040; 87086; 87186; 87529; 93005; 93010; 93880-TC; 97116-GP; 97161-GP; 99285-25; J0131; J1756; Q9967; U0003